=== PATIENT | female | born 1935 | race Caucasian/White ===

== ENCOUNTER → 2019-01-30 | Outpatient (CLI) | payer MEDICARE, OTHER ==
--- NOTE | 2019-01-30 22:48 | MR ---
EXAMINATION TYPE: MR iac wo/w con DATE OF EXAM: 01/30/2019 COMPARISON: NONE HISTORY: Lt sided hearing loss TECHNIQUE: Multiplanar, multisequence images of the brain and brainstem is performed without and with IV contras t, utilizing 7.5 mL intravenous Gadavist . Acoustic nerve disorder protocol. FINDINGS: Diffusion weighted images demonstrate no evidence of a recent infarct or other diffusion ab normality. There is no worrisome extra-axial fluid collection. There is diffuse ventricular and sulc al prominence. Findings most prominent over the bilateral frontal and temporal lobes There are scatte red focal and confluent areas of T2 hyperintensity seen throughout the superficial, deep, and the per iventricular white matter. Midline structures demonstrate normal morphology. The craniocervical junction appears within normal limits. Normal vascular flow voids are seen. The visualized sinuses are clear and the globes are inta ct. Patchy increased fluid signal bilateral inferior mastoid air cells. Vestibulocochlear complexes are s ymmetric and thought within normal limits. No suspicious enhancing cerebellopontine angle mass is toño ntified bilaterally. IMPRESSION: 1. Fairly moderate diffuse cerebral atrophy and advanced chronic small vessel ischemic changes. 2. Possible bilateral mastoiditis, correlate clinically.
== END | disposition home or self-care (01) ==
LOC: RADMRIMAIN 15:03
PROVIDERS: ATTEND Otolaryngology
DX: I67.82 Cerebral ischemia (principal); G31.9 Degenerative disease of nervous system, unspecified
CPT/HCPCS: 70553; A9585